=== PATIENT | female | born 1990 | race African-American/Black ===

== ENCOUNTER 2024-01-12 02:30 | Inpatient (IN) | payer BC ==
[2024-01-12 03:21] VITALS: BMI 24.7
[2024-01-12] MEDS ORDERED: OXYTOCIN 20 UNITS in 0.9% NS 20 UNIT/1,000 ML INFUS.BAG IV ONE (03:35)
[2024-01-12] MEDS: OXYTOCIN 20 UNITS in 0.9% NS 20 UNIT/1,000 ML INFUS.BAG IV SCH (03:45)
[2024-01-12] MEDS ORDERED: IBUPROFEN 600 MG TABLET (FP) PO ONE (04:01)
[2024-01-12] MEDS ORDERED: BENZOCAINE 28 GM HEMORRHOIDAL OINTMENT TP PRN (04:02)
[2024-01-12] MEDS ORDERED: WITCH HAZEL 50% (TUCKS) 40 PAD/JAR PAD TP PRN (04:02)
[2024-01-12] MEDS ORDERED: METHYLERGONOVINE MALEATE 0.2 MG/1 ML AMP IM PRN (04:02)
[2024-01-12] MEDS ORDERED: BISACODYL 10 MG SUPP.RECT RC PRN (04:02)
[2024-01-12] MEDS ORDERED: ACETAMINOPHEN 325 MG TABLET (FP) PO PRN (04:02)
[2024-01-12] MEDS ORDERED: BENZOCAINE 20% 57 GM BOTTLE TP PRN (04:02)
[2024-01-12 04:19] LABS: BASO % 0.4 % (0-2.0); EOS % 0.2 % (0-4.5); HEMATOCRIT 37.1 % (32.4-45.2); HEMOGLOBIN 12.6 GM/dL (10.7-15.3); LYMPH % 31.5 % (8-40); MCH 30.6 pg (25.7-33.7); MCHC 33.9 g/dl (32.0-36.0); MEAN CELL VOLUME 90.3 fl (80-96); MEAN PLT VOLUME 9.7 fl (7.5-11.1); MONO % 5.7 % (3.8-10.2); NEUT % 62.2 % (42.8-82.8); PLATELET COUNT 232 10^3/uL (134-434); RBC 4.11 M/mm3 (3.60-5.2); RDW 14.2 % (11.6-15.6); WHITE BLOOD COUNT 8.4 K/mm3 (4.0-10.0)
[2024-01-12] MEDS: IBUPROFEN 600 MG TABLET (FP) PO PRN (04:20)
[2024-01-12 04:21] LABS: INR 0.89 (0.83-1.09); PROTHROMBIN TIME (PATIENT) 10.3 SEC (9.7-13.0)
[2024-01-12 04:24] LABS: ACTIVATED PTT 27.1 SECONDS (25.2-36.5)
[2024-01-12 04:32] LABS: CALCIUM 8.4 mg/dL (8.5-10.1)
[2024-01-12 04:33] LABS: BLOOD UREA NITROGEN 7.2 mg/dL (7-18)
[2024-01-12 04:36] LABS: CREATININE 0.7 mg/dL (0.55-1.3)
[2024-01-12] MEDS ORDERED: oxyCODONE HCL 5 MG TABLET ONE (05:18)
[2024-01-12] MEDS: oxyCODONE HCL 5 MG TABLET PO PRN (05:20)
[2024-01-12] MEDS: DEXTROSE 5%-LACTATED RINGERS 1,000 ML IV SCH (06:37)
[2024-01-12] MEDS: PRENATAL VITAMINS W/ FOLIC ACID TABLET (FP) PO SCH (09:28)
[2024-01-12] MEDS: FERROUS SO4 325 MG TABLET (FP) PO SCH (09:28)
[2024-01-12 09:49] LABS: HIV INTERPRETATION NEGATIVE (NEGATIVE)
[2024-01-13 08:19] LABS: BASO % 0.6 % (0-2.0); EOS % 0.6 % (0-4.5); HEMOGLOBIN 12.2 GM/dL (10.7-15.3); LYMPH % 28.4 % (8-40); MCH 30.9 pg (25.7-33.7); MEAN PLT VOLUME 9.5 fl (7.5-11.1); NEUT % 66.4 % (42.8-82.8); PLATELET COUNT 207 10^3/uL (134-434); RBC 3.96 M/mm3 (3.60-5.2); RDW 14.1 % (11.6-15.6); WHITE BLOOD COUNT 10.6 K/mm3 (4.0-10.0)
[2024-01-13] MEDS ORDERED: SENNOSIDES/DOCUSATE COMBO (SENNA PLUS) TABLET (UD) PO PRN (22:00)
[2024-01-14 12:16] VITALS: BP 118/80; PULSE 92; RESP 16; TEMP 97.9
== END 2024-01-14 13:00 | disposition home or self-care (01) | DRG 807 ==
LOC: JLDR 02:30 → J3W 05:59
PROVIDERS: ADMIT Obstetrics & Gynecology; ATTEND Obstetrics & Gynecology
PROC: 10E0XZZ Delivery of Products of Conception, External Approach (ICD-10-PCS; principal; 2024-01-12)
PROC: 0HQ9XZZ Repair Perineum Skin, External Approach (ICD-10-PCS; 2024-01-12)
DX: O70.0 First degree perineal laceration during delivery (principal); Z37.0 Single live birth; Z3A.38 38 weeks gestation of pregnancy
CPT/HCPCS: 36415; 59409; 80048; 85025; 85610; 85730; 86780; 86803; 86850; 86900; 86901; 87389

== ENCOUNTER 2024-01-18 01:23 | Emergency (ER) | payer BC ==
[2024-01-18 01:32] VITALS: RESP 18; TEMP 99; BMI 23.0
[2024-01-18] MEDS ORDERED: METOCLOPRAMIDE HCL INJECTION 10 MG/2 ML VIAL ONE (02:03)
[2024-01-18] MEDS ORDERED: ACETAMINOPHEN INJECTION 100 ML IVPB ONE (02:03)
[2024-01-18] MEDS: SODIUM CHLORIDE 0.9% 500 ML INFUS.BAG IV ONE (02:18)
[2024-01-18] MEDS: METOCLOPRAMIDE HCL INJECTION 10 MG/2 ML VIAL IVPB ONE (02:18)
[2024-01-18] MEDS: ACETAMINOPHEN 1000 MG/100 ML BAG IVPB ONE (02:18)
[2024-01-18 02:22] LABS: EOS % 1.6 % (0-4.5); HEMATOCRIT 35.7 % (32.4-45.2); MCH 30.7 pg (25.7-33.7); MCHC 33.5 g/dl (32.0-36.0); MEAN CELL VOLUME 91.4 fl (80-96); MONO % 6.2 % (3.8-10.2); NEUT % 56.2 % (42.8-82.8); PLATELET COUNT 269 10^3/uL (134-434); RBC 3.91 M/mm3 (3.60-5.2); RDW 14.2 % (11.6-15.6); WHITE BLOOD COUNT 7.3 K/mm3 (4.0-10.0)
[2024-01-18 02:40] LABS: POTASSIUM 3.9 mmol/L (3.5-5.1)
[2024-01-18 02:43] LABS: BLOOD UREA NITROGEN 8.1 mg/dL (7-18)
[2024-01-18 02:46] LABS: CREATININE 0.8 mg/dL (0.55-1.3)
[2024-01-18 02:47] LABS: BILIRUBIN,TOTAL 0.2 mg/dL (0.2-1)
[2024-01-18 02:48] LABS: TOT PROT 6.5 g/dl (6.4-8.2)
[2024-01-18 03:04] VITALS: BP 140/90; PULSE 81
[2024-01-18 03:37] LABS: EPI CELLS 6 /uL (0-25.1); HYALINE CASTS 1 /uL (0-3.1); PH,URINE 5.5 (5.0-8.0); URINE APPEARANCE CLEAR; URINE BACTERIA 6 /uL (0-1359); URINE BILIRUBIN NEGATIVE (NEGATIVE); URINE COLOR YELLOW; URINE GLUCOSE (UA) NEGATIVE (NEGATIVE); URINE KETONE NEGATIVE (NEGATIVE); URINE LEUK ESTERASE NEGATIVE (NEGATIVE); URINE NITRITE NEGATIVE (NEGATIVE); URINE PROTEIN NEGATIVE (NEGATIVE); URINE RBC 14 /uL (0-23.9); URINE UROBILINOGEN 0.2 mg/dL (0.2-1.0); URINE WBC 10 /uL (0-25.8)
== END 2024-01-18 03:55 | disposition home or self-care (01) ==
LOC: JER 01:23
PROC: 3E033NZ Introduction of Analgesics, Hypnotics, Sedatives into Peripheral Vein, Percutaneous Approach (ICD-10-PCS; principal; 2024-01-18)
PROC: 3E033GC Introduction of Other Therapeutic Substance into Peripheral Vein, Percutaneous Approach (ICD-10-PCS; 2024-01-18)
DX: O99.355 Diseases of the nervous system complicating the puerperium (principal); R51.9 Headache, unspecified; M25.473 Effusion, unspecified ankle
CPT/HCPCS: 36415; 80053; 81003; 85025; 99284-25; J0131